=== PATIENT | female | born 1970 | race Caucasian/White ===

== ENCOUNTER 2018-02-18 08:46 | Observation (INO) ==
[2018-02-18] MEDS ORDERED: Ketorolac 30 MG/ML VIAL IVP ONE (09:12)
[2018-02-18] MEDS ORDERED: Ondansetron 4 MG/2 ML VIAL IVP ONE ×2 (09:12→18:09)
[2018-02-18] MEDS ORDERED: 0.9 % Sodium Chloride 1,000 ML IVC ONE ×2 (09:12→11:23)
--- NOTE | 2018-02-18 09:18 | Emergency Department Note ---
Disposition Clinical Impression: Ureterolithiasis, Cystitis Disposition: Admitted As Inpatient Condition: Good Forms: ED Satisfaction Letter, Work/School Release Abdominal Pain HPI - General Chief Complaint: ED Abdominal Pain Stated Complaint: Left side pain Time Seen by Provider: 02/18/18 08:50 Source: patient Mode of arrival: private vehicle Limitations: no limitations Nursing Notes Reviewed: Yes Vital Signs Reviewed: Yes - History of Present Illness Pt Subjective Complaint: flank pain Onset (ago): day(s) (Friday) Consistency: intermittent, Worsening (acutely worse this am) Pain Severity: moderate, severe Pain Scale: 8 Quality: stabbing, sharp Radiation: LLQ Improves with: nothing Worsens with: nothing Context: other (no hx of similar, also has had intermittent urinary hesitancy since Friday) Associated symptoms: Reports: nausea. Denies: vomiting, diarrhea, fever, chills , constipation, dysuria, hematemesis, hematochezia, melena, hematuria, anorexia , syncope Treatments prior to arrival: none - Related Data LMP (females 10-50): unknown Allergies Allergy/AdvReac Type Severity Reaction Status Date / Time No Known Allergies Allergy Verified 02/18/18 08:50 All systems ED: reviewed and negative except as stated. Review of Systems: As Per HPI Constitutional: Denies: fever, chills, weakness, night sweats Cardiovascular: Denies: chest pain, palpitations, syncope Respiratory: Denies: cough, dyspnea Gastrointestinal: Reports: as per HPI, abdominal pain, nausea. Denies: vomiting , diarrhea, constipation, hematemesis, melena, hematochezia Genitourinary: Reports: as per HPI, urgency. Denies: dysuria, frequency, hematuria, discharge, abnormal menses Musculoskeletal: Reports: as per HPI. Denies: joint swelling, arthralgia Neurological: Denies: headache, weakness, numbness Hematological/Lymphatic: Denies: easy bleeding, easy bruising Abdominal Pain PMH - Past Medical History Medical history: Reports: no medical history Female Surgical History: Reports: no surgical history Psychiatric history: Reports: no psych history - Social History Smoking status: Current every day smoker Alcohol use: Reports: none Drug use: Reports: none Physical Exam - General Limitations: no limitations General appearance: alert, in distress (Appears to be in pain, tearful, pacing) - Head Head exam: atraumatic, normocephalic, normal inspection - Eye Eye exam: Present: normal appearance, PERRL. Absent: scleral icterus, conjunctival injection, periorbital swelling - ENT ENT exam: mucous membranes moist - Neck Neck exam: Present: normal inspection, full ROM, trachea midline. Absent: meningismus - Chest Chest inspection: Present: normal inspection - Respiratory Respiratory exam: Present: normal lung sounds bilaterally. Absent: respiratory distress - Cardiovascular Cardiovascular exam: Present: regular rate, normal rhythm, normal heart sounds - Abdominal Exam Abdominal exam: Present: soft, Non-Tender. Absent: distention, guarding, rebound, rigidity, organomegaly, tenderness at McBurney's Point, ascites, mass, pulsatile mass - Extremities Exam Extremities exam: Present: normal inspection - Back Exam Back exam: Present: normal inspection, CVA tenderness (L). Absent: CVA tenderness (R), muscle spasm - Neurological Exam Neurological exam: Present: alert, oriented X3, CN II-XII intact, normal gait - Psychiatric Psychiatric exam: Present: normal affect, normal mood - Skin Skin exam: Present: warm, dry, intact, normal color Course Course Narrative: Patient presents for evaluation of left flank pain that began Friday. It became acutely worse this morning. It radiates into the left lower quadrant. She has no history of kidney stones, kidney infections, ovarian cysts, or other medical problems. She has had some nausea but no vomiting, no fever or chills. She has had intermittent urinary hesitancy and urgency since Friday as well. She appears uncomfortable but nontoxic. She is pacing around the room. Suspect renal colic. Meds, labs and CT have been ordered. Patient with cystitis and a distal ureteral stone. She will require admission. Rocephin ordered. Additional fluids and meds ordered. Urology paged. Patient accepted for admission. Case discussed with Dr. Mas. He has had [id number] time with patient and agrees with the assessment, plan. - Reevaluation(s) Reevaluation #1: patient states that the pain is improved but still present. Nausea is gone. She states that she had dysuria as well. Additional meds ordered. Time: 11:00 - Consultations Consultation #1: Case was discussed with Dr. Cobb, urologist. He will accept the patient for admission. He states that this patient will be the ninth add on of the day and kindly requests that we let the patient know that her procedure may be very late this evening. Patient updated. Time: 11:23 Vital Signs Temperature 97.9 F 02/18/18 08:48 Pulse Rate 95 02/18/18 08:48 Respiratory Rate 22 02/18/18 08:48 Blood Pressure 158/108 02/18/18 08:48 O2 Sat by Pulse Oximetry 100 02/18/18 08:48 Temperature 97.9 F 02/18/18 08:48 Pulse Rate 95 02/18/18 08:48 Respiratory Rate 22 02/18/18 08:48 Blood Pressure 158/108 02/18/18 08:48 O2 Sat by Pulse Oximetry 100 02/18/18 08:48 Oxygen Delivery Oxygen Delivery Room Air Abdominal Pain - MDM Narrative Medical decision making narrative: Patient presents for evaluation of acute left flank pain and urinary symptoms. She has had nausea but no vomiting, no fever or chills. She is otherwise healthy. She has normal vitals, no change in mental status, no decrease in urine output. Do not suspect sepsis. Patient's CAT scan shows an obstructive distal ureterolith with findings concerning for cystitis. Urinalysis is also concerning for cystitis. Antibiotics, fluids and pain meds have been given. Patient will require admission. - Medical Records Medical records reviewed: Yes I reviewed the patient's medical records. - Lab Data Lab results reviewed: Yes I reviewed the patient's lab results. Lab results narrative: Laboratory Last Values WBC 17.0 K/mcL (4.3-11.1) H 02/18/18 09:53 RBC 4.48 M/mcL (3.82-4.97) 02/18/18 09:53 Hgb 13.9 g/dL (11.5-15.4) 02/18/18 09:53 Hct 41.0 % (35.3-44.9) 02/18/18 09:53 MCV 91.5 fL (83.0-100.0) 02/18/18 09:53 MCH 31.0 pg (28.0-33.3) 02/18/18 09:53 MCHC 33.9 g/dL (31.6-35.5) 02/18/18 09:53 RDW 12.9 % (11.5-14.5) 02/18/18 09:53 Plt Count 218 K/mcL (140-400) 02/18/18 09:53 MPV 12.1 fL (9.4-12.4) 02/18/18 09:53 Immature Gran % 0.3 % (0-4) 02/18/18 09:53 Seg Neutrophils % 80.0 % 02/18/18 09:53 Lymphocytes % 13.8 % 02/18/18 09:53 Monocytes % 5.2 % 02/18/18 09:53 Eosinophils % 0.3 % 02/18/18 09:53 Basophils % 0.4 % 02/18/18 09:53 Neutrophils # 13.6 K/mcL (1.6-8.9) H 02/18/18 09:53 Lymphocytes # 2.4 K/mcL (0.6-4.6) 02/18/18 09:53 Monocytes # 0.9 K/mcL (0.0-1.3) 02/18/18 09:53 Eosinophils # 0.1 K/mcL (0.0-0.6) 02/18/18 09:53 Basophils # 0.1 K/mcL (0.0-0.2) 02/18/18 09:53 Sodium 135 mEq/L (136-145) L 02/18/18 09:53 Potassium 3.9 mEq/L (3.5-5.1) 02/18/18 09:53 Chloride 106 mEq/L (98-107) 02/18/18 09:53 Carbon Dioxide 23 mEq/L (23-29) 02/18/18 09:53 BUN 7 mg/dL (6-20) 02/18/18 09:53 Creatinine 0.52 mg/dL (0.60-1.20) L 02/18/18 09:53 Est GFR ( Amer) > 60 (> 60) 02/18/18 09:53 Est GFR (Non-Af Amer) > 60 (> 60) 02/18/18 09:53 BUN/Creatinine Ratio 13 (6-26) 02/18/18 09:53 Glucose 97 mg/dL (70-105) 02/18/18 09:53 Calculated Osmolality 278 (280-300) L 02/18/18 09:53 Calcium 9.5 mg/dL (8.6-10.3) 02/18/18 09:53 Urine Color Dark Yellow (Yellow) 02/18/18 09:15 Urine Clarity Turbid (Clear) A 02/18/18 09:15 Urine pH 6.5 pH Units (5.0-8.0) 02/18/18 09:15 Ur Specific [place] 1.015 (1.010-1.025) 02/18/18 09:15 Urine Protein 100 mg/dL (Neg-Trace) H 02/18/18 09:15 Urine Glucose (UA) Normal mg/dL (Normal) 02/18/18 09:15 Urine Ketones 15 mg/dL (Negative) H 02/18/18 09:15 Urine Blood Large (Negative) H 02/18/18 09:15 Urine Nitrite Positive (Negative) A 02/18/18:15 Urine Bilirubin Negative (Negative) 02/18/18 09:15 Urine Urobilinogen 2.0 mg/dL (Normal) H 02/18/18 09:15 Ur Leukocyte Esterase Large (Negative) H 02/18/18 09:15 Urine Microscopic RBC TNTC per hpf (0-3) H 02/18/18 09:15 Urine Microscopic WBC TNTC per hpf (0-3) H 02/18/18 09:15 Ur Squamous Epith Cells Many per lpf (None-Few) H 02/18/18 09:15 Urine Bacteria Many per hpf (None-Few) H 02/18/18 09:15 Hyaline Casts None Seen per lpf (None-Few) 02/18/18 09:15 Ur Culture Indicated? NO. (NO) A 02/18/18 09:15 Result diagrams: 02/18/18 09:53 Lab Results 02/18/18 02/18/18 Range/Units 09: 09:53 WBC 17.0 H (4.3-11.1) K/mcL RBC 4.48 (3.82-4.97) M/mcL Hgb 13.9 (11.5-15.4) g/dL Hct 41.0 (35.3-44.9) % MCV 91.5 (83.0-100.0) fL MCH 31.0 (28.0-33.3) pg MCHC 33.9 (31.6-35.5) g/dL RDW 12.9 (11.5-14.5) % Plt Count 218 (140-400) K/mcL MPV 12.1 (9.4-12.4) fL Immature Gran % 0.3 (0-4) % Seg Neutrophils % 80.0 % Lymphocytes % 13.8 % Monocytes % 5.2 % Eosinophils % 0.3 % Basophils % 0.4 % Neutrophils # 13.6 H (1.6-8.9) K/mcL Lymphocytes # 2.4 (0.6-4.6) K/mcL Monocytes # 0.9 (0.0-1.3) K/mcL Eosinophils # 0.1 (0.0-0.6) K/mcL Basophils # 0.1 (0.0-0.2) K/mcL Urine Color Dark Yellow (Yellow) Urine Clarity Turbid A (Clear) Urine pH 6.5 (5.0-8.0) pH Units Ur Specific [place] 1.015 (1.010-1.025) Urine Protein 100 H (Neg-Trace) mg/dL Urine Glucose (UA) Normal (Normal) mg/dL Urine Ketones 15 H (Negative) mg/dL Urine Blood Large H (Negative) Urine Nitrite Positive A (Negative) Urine Bilirubin Negative (Negative) Urine Urobilinogen 2.0 H (Normal) mg/dL Ur Leukocyte Esterase Large H (Negative) Urine Microscopic RBC TNTC H (0-3) per hpf Urine Microscopic WBC TNTC H (0-3) per hpf Ur Squamous Epith Cells Many H (None-Few) per lpf Urine Bacteria Many H (None-Few) per hpf Hyaline Casts None Seen (None-Few) per lpf Ur Culture Indicated? NO. A (NO) - Radiology Data Radiology results reviewed: Yes I reviewed the patient's radiology results. Abdomen/Pelvis CT 02/18/18 09:12 IMPRESSION: 1. Perivesical induration and apparent diffuse bladder wall thickening are suspicious for acute cystitis. 2. Mild fullness of the left ureter. 3 mm calcification along the course of the distal left ureter may represent distal ureteral calculus. 3. Normal appendix. 4. Uncomplicated cholelithiasis. 5. Mild colonic diverticulosis without acute inflammatory changes. D/ / 02/18/2018 09:51:42 Jayce Lloyd MD / leighann Interpreting Provider: Jayce Lloyd MD
[2018-02-18 09:27] LABS: Bilirubin,Urine Negative (Negative); Blood,Urine Large (Negative); Clarity,Urine Turbid (Clear); Color,Urine Dark Yellow (Yellow); Glucose,Urine (UA) Normal (Normal); Ketones,Urine 15 mg/dL (Negative); Leukocyte Esterase,Urine Large (Negative); Nitrite,Urine Positive (Negative); PH,Urine 6.5 pH Units (5.0-8.0); Protein,Urine 100 mg/dL (Neg-Trace); Specific Gravity,Urine 1.015 (1.010-1.025)
[2018-02-18 09:29] LABS: Bacteria,Urine Many per hpf (None-Few); Hyaline Casts,Urine None Seen per lpf (None-Few); RBC,Urine TNTC per hpf (0-3); Squamous Epithelial Cell,Urine Many per lpf (None-Few); WBC,Urine TNTC per hpf (0-3)
[2018-02-18 10:01] LABS: Basophils # 0.1 K/mcL (0.0-0.2); Basophils % 0.4 %; Eosinophils # 0.1 K/mcL (0.0-0.6); Eosinophils % 0.3 %; Hemoglobin 13.9 g/dL (11.5-15.4); Immature Granulocytes % 0.3 % (0-4); Lymphocytes # 2.4 K/mcL (0.6-4.6); Lymphocytes % 13.8 %; Mean Corpuscular HGB Conc 33.9 g/dL (31.6-35.5); Mean Corpuscular Volume 91.5 fL (83.0-100.0); Mean Platelet Volume 12.1 fL (9.4-12.4); Monocytes # 0.9 K/mcL (0.0-1.3); Monocytes % 5.2 %; Neutrophils # 13.6 K/mcL (1.6-8.9); Platelet Count 218 K/mcL (140-400); Red Blood Count 4.48 M/mcL (3.82-4.97); Red Cell Distribution Width 12.9 % (11.5-14.5)
[2018-02-18 10:29] LABS: BUN/Creatinine Ratio 13 (6-26); Blood Urea Nitrogen 7 mg/dL (6-20); Calcium 9.5 mg/dL (8.6-10.3); Carbon Dioxide 23 mEq/L (23-29); Chloride 106 mEq/L (98-107); Glucose 97 mg/dL (70-105); Osmolality,Calculated 278 (280-300); Potassium 3.9 mEq/L (3.5-5.1); Sodium 135 mEq/L (136-145); eGFR For Non-African Americans > 60 (> 60)
[2018-02-18] MEDS ORDERED: cefTRIAXone 1,000 MG in 0.9 % Sodium Chloride Mini Bag 100 ML IVPB ONE (10:32)
[2018-02-18] MEDS ORDERED: *HR* FentaNYL (PF) 100 MCG/2 ML VIAL IVP ONE (10:42)
--- NOTE | 2018-02-18 11:22 | Emergency Department Note ---
Disposition Clinical Impression: Ureterolithiasis, Cystitis Disposition: Admitted As Inpatient Condition: Good General Adult HPI - General Chief complaint: ED Abdominal Pain Stated complaint: Left side pain Time Seen by Provider: 02/18/18 08:50 Source: patient Mode of arrival: private vehicle Limitations: no limitations - History of Present Illness Pain Scale: 8 - Related Data Home Medications Medication Instructions Recorded Confirmed No Known Home Drugs 02/18/18 02/18/18 Allergies Allergy/AdvReac Type Severity Reaction Status Date / Time No Known Allergies Allergy Verified 02/18/18 11:25 Constitutional: Denies: fever, chills, weakness, night sweats Cardiovascular: Denies: chest pain, palpitations, syncope Respiratory: Denies: cough, dyspnea Gastrointestinal: Reports: as per HPI, abdominal pain, nausea. Denies: vomiting , diarrhea, constipation, hematemesis, melena, hematochezia Genitourinary: Reports: as per HPI, urgency. Denies: dysuria, frequency, hematuria, discharge, abnormal menses Musculoskeletal: Reports: as per HPI. Denies: joint swelling, arthralgia Neurological: Denies: headache, weakness, numbness Hematological/Lymphatic: Denies: easy bleeding, easy bruising Past Medical History - Past Medical History Medical history: Reports: no medical history Psychiatric history: Reports: no psych history - Social History Smoking Status: Current every day smoker Smokeless Tobacco Status: No Alcohol use: Reports: none Drug use: Reports: none Physical Exam - General Limitations: no limitations General appearance: alert, in distress (Appears to be in pain, tearful, pacing) Course Vital Signs Temperature 97.9 F 02/18/18 08:48 Pulse Rate 95 02/18/18 08:48 Respiratory Rate 22 02/18/18 08:48 Blood Pressure 158/108 02/18/18 08:48 O2 Sat by Pulse Oximetry 100 02/18/18 08:48 Temperature 97.6 F 02/18/18 13:26 Pulse Rate 60 02/18/18 13:26 Respiratory Rate 16 02/18/18 13:26 Blood Pressure 146/77 02/18/18 13:26 O2 Sat by Pulse Oximetry 99 02/18/18 13:51 Oxygen Delivery Oxygen Delivery Room Air Medical Decision Making - Lab Data Result diagrams: 02/18/18 09:53 02/18/18 09:53 Lab Results 10/02/2602/18/18 02/18/18 Range/Units 09:15 09:53 09:53 WBC 17.0 H (4.3-11.1) K/mcL RBC 4.48 (3.82-4.97) M/mcL Hgb 13.9 (11.5-15.4) g/dL Hct 41.0 (35.3-44.9) % MCV 91.5 (83.0-100.0) fL MCH 31.0 (28.0-33.3) pg MCHC 33.9 (31.6-35.5) g/dL RDW 12.9 (11.5-14.5) % Plt Count 218 (140-400) K/mcL MPV 12.1 (9.4-12.4) fL Immature Gran % 0.3 (0-4) % Seg Neutrophils % 80.0 % Lymphocytes % 13.8 % Monocytes % 5.2 % Eosinophils % 0.3 % Basophils % 0.4 % Neutrophils # 13.6 H (1.6-8.9) K/mcL Lymphocytes # 2.4 (0.6-4.6) K/mcL Monocytes # 0.9 (0.0-1.3) K/mcL Eosinophils # 0.1 (0.0-0.6) K/mcL Basophils # 0.1 (0.0-0.2) K/mcL Sodium 135 L (136-145) mEq/L Potassium 3.9 (3.5-5.1) mEq/L Chloride 106 (98-107) mEq/L Carbon Dioxide 23 (23-29) mEq/L BUN 7 (6-20) mg/dL Creatinine 0.52 L (0.60-1.20) mg/dL Est GFR ( Amer) > 60 (> 60) Est GFR (Non-Af Amer) > 60 (> 60) BUN/Creatinine Ratio 13 (6-26) Glucose 97 (70-105) mg/dL Calculated Osmolality 278 L (280-300) Calcium 9.5 (8.6-10.3) mg/dL Urine Color Dark Yellow (Yellow) Urine Clarity Turbid A (Clear) Urine pH 6.5 (5.0-8.0) pH Units Ur Specific [place] 1.015 (1.010-1.025) Urine Protein 100 H (Neg-Trace) mg/dL Urine Glucose (UA) Normal (Normal) mg/dL Urine Ketones 15 H (Negative) mg/dL Urine Blood Large H (Negative) Urine Nitrite Positive A (Negative) Urine Bilirubin Negative (Negative) Urine Urobilinogen 2.0 H (Normal) mg/dL Ur Leukocyte Esterase Large H (Negative) Urine Microscopic RBC TNTC H (0-3) per hpf Urine Microscopic WBC TNTC H (0-3) per hpf Ur Squamous Epith Cells Many H (None-Few) per lpf Urine Bacteria Many H (None-Few) per hpf Hyaline Casts None Seen (None-Few) per lpf Ur Culture Indicated? NO. A (NO) Attestation Statement - Attestation Attestation: For this encounter, I have reviewed the SENIOR MANUFACTURING ENGINEER or PA documentation, treatment plan, and medical decision making; and I have had face to face time with this patient. [id number] time provided Patient uncomfortable appearing on exam. Labs and transcribed CT report reviewed by me
[2018-02-18] MEDS ORDERED: OXYCODONE Oral CONC 10 MG/0.5 ML ORAL.SYG SL PRN ×4 (13:04→20:06)
[2018-02-18] MEDS ORDERED: Ondansetron 4 MG/2 ML VIAL IVP PRN ×2 (13:04→20:06)
[2018-02-18] MEDS ORDERED: *HR* Belladonna Alkaloids/Opium 30 MG RECTAL SUPPOSITORY RC PRN ×2 (13:04→20:06)
[2018-02-18] MEDS ORDERED: *HR* OxyCODONE Immed Rel 5 MG TABLET PO PRN (13:04)
[2018-02-18] MEDS ORDERED: Acetaminophen 325 MG TABLET PO PRN ×2 (13:04→20:06)
[2018-02-18] MEDS ORDERED: Naloxone 0.4 MG/ML INJ IVP PRN ×2 (13:04→20:06)
[2018-02-18] MEDS ORDERED: *HR* HYDROcodone/Acet 5/325 mg TABLET PO PRN ×2 (13:04→20:06)
[2018-02-18] MEDS ORDERED: 0.9 % Sodium Chloride 1,000 ML IVC SCH (13:15)
--- NOTE | 2018-02-18 13:17 | Urology History & Physical ---
<Janette Early N - Last Filed: 02/18/18 13:15> Date of Encounter: 02/18/18 Time of Encounter: 11:30 Assessment and Plan (1) Ureterolithiasis Current Visit: Yes Status: Acute Patient is a 47 year old female who presents with a 3mm left distal ureteral stone. Discussed risks and benefits of ureteroscopic stone extraction. Patient verbalized understanding, consent has been signed, and she is prepared to undergo a left ureteroscopic stone extraction with or without holmium laser lithotripsy, basket retrieval, and ureteral stent placement with Dr. Cobb. Patient will remain NPO. (2) Cystitis Current Visit: Yes Status: Acute Patient is a 47 year old female who presents with acute cystitis. Patient has been placed on IV Rocephin and is prepared to undergo cystoscopy and ureteroscopic stone extraction later today. History of Present Illness Chief complaint: left flank pain HPI: Ms. Del Rio is a 47 year old female who presents with a history of a 3mm left ureteral stone. Patient reports left flank pain began 5 days ago, but pain acutely worsened last night. Patient states pain is now accompanied with intractable nausea and vomiting. Patient states she feels as though she has chills but denies fever or diaphoresis. Patient denies gross hematuria or dysuria. Patient denies known past history of renal stones. Patient denies known family history of renal stones. Past Med Surg Social Fam HX - Past Medical History Medical history: no medical history Psychiatric history: no psych history - Social History Smoking Status: Current every day smoker Smokeless Tobacco Status: No Alcohol use: none Drug use: none Medications and Allergies No Known Home Drugs 02/18/18 [History] 3 Allergy/AdvReac Type Severity Reaction Status Date / Time No Known Allergies Allergy Verified 02/18/18 11:25 Review of Systems - Constitutional chills, fatigue, no fever(s) - EENT Nose, mouth and throat: no dizziness, no headache(s) - Cardiovascular no chest pain, no diaphoresis, no dyspnea - Respiratory no cough, no dyspnea - Gastrointestinal abdominal pain, nausea, vomiting - Genitourinary Genitourinary: difficulty urinating, flank pain, urinary hesitancy, no dysuria, no hematuria, no urinary frequency, no urinary incontinence, no urinary urgency - Musculoskeletal back pain, no numbness - Integumentary no erythema, no rash - Neurological no confusion, no syncope - Hematologic/Lymphatic no easy bleeding, no easy bruising - Allergic/Immunologic no throat swelling, no wheezing Exam Initial Vital Signs Temp Pulse Resp BP Pulse Ox 97.9 F 95 22 158/108 100 02/18/18 08:48 02/18/18 08:48 02/18/18 08:48 02/18/18 08:48 02/18/18 08:48 - General physical appearance Present: well developed, no distress, moderate pain - Eyes Present: PERRL, normal ocular movement - ENT Present: normal nares, no hearing loss, no congestion - Neck Present: no masses, trachea midline - Respiratory Present: normal respiratory effort - Cardiovascular Cardiovascular exam IM: RRR - Abdomen Abdomen: Present: soft, non tender. Absent: distended - Integumentary Present: no rash, no abnormal pigmentation - Neurologic Present: normal coordination - Musculoskeletal Present: other (normal posture) Urology Results - Labs 02/18/18 09:53 02/18/18 09:53 Abnormal lab results WBC 17.0 K/mcL (4.3-11.1) H 02/18/18 09:53 Neutrophils # 13.6 K/mcL (1.6-8.9) H 02/18/18 09:53 Sodium 135 mEq/L (136-145) L 02/18/18 09:53 Creatinine 0.52 mg/dL (0.60-1.20) L 02/18/18 09:53 Calculated Osmolality 278 (280-300) L 02/18/18 09:53 Urine Clarity Turbid (Clear) A 02/18/18 09:15 Urine Protein 100 mg/dL (Neg-Trace) H 02/18/18 09:15 Urine Ketones 15 mg/dL (Negative) H 02/18/18 09:15 Urine Blood Large (Negative) H 02/18/18 09:15 Urine Nitrite Positive (Negative) A 02/18/18 09:15 Urine Urobilinogen 2.0 mg/dL (Normal) H 02/18/18 09:15 Ur Leukocyte Esterase Large (Negative) H 02/18/18 09:15 Urine Microscopic RBC TNTC per hpf (0-3) H 02/18/18 09:15 Urine Microscopic WBC TNTC per hpf (0-3) H 02/18/18 09:15 Ur Squamous Epith Cells Many per lpf (None-Few) H 02/18/18 09:15 Urine Bacteria Many per hpf (None-Few) H 02/18/18 09:15 Ur Culture Indicated? NO. (NO) A 02/18/18 09:15 All other labs normal. - Imaging CT scan - abdomen: report reviewed, image reviewed CT scan - pelvis: report reviewed, image reviewed <Connor Cobb - Last Filed: 02/18/18 17:31> Date of Encounter: 02/18/18 Assessment and Plan (1) Ureterolithiasis Current Visit: Yes Status: Acute agree with PA findings. I reviewed CT scan. I agree to proceed with planned stone extraction. although a UTI is possible I should be able to extract the stone with minimal manipulation. will require stent. procedure discussed with pt. History of Present Illness HPI: Ms. Del Rio is a 47 year old female Exam Initial Vital Signs Temp Pulse Resp BP Pulse Ox 97.9 F 95 22 158/108 100 02/18/18 08:48 02/18/18 08:48 02/18/18 08:48 02/18/18 08:48 02/18/18 08:48 Urology Results - Labs 02/18/18 09:53 02/18/18 09:53 Abnormal lab results WBC 17.0 K/mcL (4.3-11.1) H 02/18/18 09:53 Neutrophils # 13.6 K/mcL (1.6-8.9) H 02/18/18 09:53 Sodium 135 mEq/L (136-145) L 02/18/18 09:53 Creatinine 0.52 mg/dL (0.60-1.20) L 02/18/18 09:53 Calculated Osmolality 278 (280-300) L 02/18/18 09:53 Urine Clarity Turbid (Clear) A 02/18/18 09:15 Urine Protein 100 mg/dL (Neg-Trace) H 02/18/18 09:15 Urine Ketones 15 mg/dL (Negative) H 02/18/18 09:15 Urine Blood Large (Negative) H 02/18/18 09:15 Urine Nitrite Positive (Negative) A 02/18/18 09:15 Urine Urobilinogen 2.0 mg/dL (Normal) H 02/18/18 09:15 Ur Leukocyte Esterase Large (Negative) H 02/18/18 09:15 Urine Microscopic RBC TNTC per hpf (0-3) H 02/18/18 09:15 Urine Microscopic WBC TNTC per hpf (0-3) H 02/18/18 09:15 Ur Squamous Epith Cells Many per lpf (None-Few) H 02/18/18 09:15 Urine Bacteria Many per hpf (None-Few) H 02/18/18 09:15 Ur Culture Indicated? NO. (NO) A 02/18/18 09:15 All other labs normal.
--- NOTE | 2018-02-18 16:50 | Anesthesia Evaluation PreOp ---
Date of Encounter: 02/18/18 Time of Encounter: 17:42 - Past History Planned Operation: LEFT USE Cardiac History: Denies any Significant Hx Pulmonary History: Smoker [employer] History: Denies Any Significant HX Other Medical History: Denies Any Significant HX Alcohol Use: none Drug use: none Medications and Allergies No Known Home Drugs 02/18/18 [History] 3 Allergy/AdvReac Type Severity Reaction Status Date / Time No Known Allergies Allergy Verified 02/18/18 11:25 - Meds/Allergy Pre-op Review Medications Reviewed: Yes Allergies Reviewed: Yes Beta Blockers on Current Med List: No Anesthesia Results - Labs 02/18/18 09:53 02/18/18 09:53 Laboratory Last Values WBC 17.0 K/mcL (4.3-11.1) H 02/18/18 09:53 RBC 4.48 M/mcL (3.82-4.97) 02/18/18 09:53 Hgb 13.9 g/dL (11.5-15.4) 02/18/18 09:53 Hct 41.0 % (35.3-44.9) 02/18/18 09:53 MCV 91.5 fL (83.0-100.0) 02/18/18 09:53 MCH 31.0 pg (28.0-33.3) 02/18/18 09:53 MCHC 33.9 g/dL (31.6-35.5) 02/18/18 09:53 RDW 12.9 % (11.5-14.5) 02/18/18 09:53 Plt Count 218 K/mcL (140-400) 02/18/18 09:53 MPV 12.1 fL (9.4-12.4) 02/18/18 09:53 Immature Gran % 0.3 % (0-4) 02/18/18 09:53 Seg Neutrophils % 80.0 % 02/18/18 09:53 Lymphocytes % 13.8 % 02/18/18 09:53 Monocytes % 5.2 % 02/18/18 09:53 Eosinophils % 0.3 % 02/18/18 09:53 Basophils % 0.4 % 02/18/18 09:53 Neutrophils # 13.6 K/mcL (1.6-8.9) H 02/18/18 09:53 Lymphocytes # 2.4 K/mcL (0.6-4.6) 02/18/18 09:53 Monocytes # 0.9 K/mcL (0.0-1.3) 02/18/18 09:53 Eosinophils # 0.1 K/mcL (0.0-0.6) 02/18/18 09:53 Basophils # 0.1 K/mcL (0.0-0.2) 02/18/18 09:53 Sodium 135 mEq/L (136-145) L 02/18/18 09:53 Potassium 3.9 mEq/L (3.5-5.1) 02/18/18 09:53 Chloride 106 mEq/L (98-107) 02/18/18 09:53 Carbon Dioxide 23 mEq/L (23-29) 02/18/18 09:53 BUN 7 mg/dL (6-20) 02/18/18 09:53 Creatinine 0.52 mg/dL (0.60-1.20) L 02/18/18 09:53 Est GFR ( Amer) > 60 (> 60) 02/18/18 09:53 Est GFR (Non-Af Amer) > 60 (> 60) 02/18/18 09:53 BUN/Creatinine Ratio 13 (6-26) 02/18/18 09:53 Glucose 97 mg/dL (70-105) 02/18/18 09:53 Calculated Osmolality 278 (280-300) L 02/18/18 09:53 Calcium 9.5 mg/dL (8.6-10.3) 02/18/18 09:53 Urine Color Dark Yellow (Yellow) 02/18/18 09:15 Urine Clarity Turbid (Clear) A 02/18/18 09:15 Urine pH 6.5 pH Units (5.0-8.0) 02/18/18 09:15 Ur Specific [place] 1.015 (1.010-1.025) 02/18/18 09:15 Urine Protein 100 mg/dL (Neg-Trace) H 02/18/18 09:15 Urine Glucose (UA) Normal mg/dL (Normal) 02/18/18 09:15 Urine Ketones 15 mg/dL (Negative) H 02/18/18 09:15 Urine Blood Large (Negative) H 02/18/18 09:15 Urine Nitrite Positive (Negative) A 02/18/18 09:15 Urine Bilirubin Negative (Negative) 02/18/18 09:15 Urine Urobilinogen 2.0 mg/dL (Normal) H 02/18/18 09:15 Ur Leukocyte Esterase Large (Negative) H 02/18/18 09:15 Urine Microscopic RBC TNTC per hpf (0-3) H 02/18/18 09:15 Urine Microscopic WBC TNTC per hpf (0-3) H 02/18/18 09:15 Ur Squamous Epith Cells Many per lpf (None-Few) H 02/18/18 09:15 Urine Bacteria Many per hpf (None-Few) H 02/18/18 09:15 Hyaline Casts None Seen per lpf (None-Few) 02/18/18 09:15 Ur Culture Indicated? NO. (NO) A 02/18/18 09:15 Urine Test Negative (Negative) 02/18/18 15:46 Anesthesia Exam Vital Signs/O2 Sat, Most Current Temp Pulse Resp BP Pulse Ox 98.0 F 51 16 137/69 99 02/18/18 16:48 02/18/18 16:48 02/18/18 16:48 02/18/18 16:48 02/18/18 16:48 Weight: 53 KG - BMI 23 NPO (# of Hours): 8 - HEENT Mallampati: I Teeth: Normal Oral Opening: Greater than 3 - Cardiac Rhythm: Regular - Pulmonary Breath Sounds: bilateral Clear Respiratory Effort: Symmetrical - Additional Findings MAR Administrations Sodium Chloride (0.9 % Sodium Chloride) 1,000 mls @ 125 mls/hr IVC .Q8H ERA Stop: 08/20/18 13:16 Last Admin: 02/18/18 14:06 Dose: 125 mls/hr Oxycodone HCl (Oxycodone Oral Conc) 10 mg SL Q4H PRN; Protocol PRN Reason: Severe Pain Stop: 08/20/18 13:05 Last Admin: 02/18/18 14:05 Dose: 10 mg Fentanyl Citrate (Fentanyl (Pf)) 50 mcg IVP ONCE ONE Stop: 02/18/18 10:43 Last Admin: 02/18/18 11:24 Dose: 50 mcg Sodium Chloride (0.9 % Sodium Chloride) 1,000 mls @ 999 mls/hr IVC .Q1H1M ONE Stop: 02/18/18 10:12 Last Infusion: 02/18/18 10:20 Dose: 0 mls/hr Admin: 02/18/18 09:49 Dose: 999 mls/hr Ceftriaxone Sodium 1,000 mg/ (Sodium Chloride) 100 mls @ 200 mls/hr IVPB ONCE ONE Stop: 02/18/18 11:01 Last Infusion: 02/18/18 11:57 Dose: 0 mls/hr Admin: 02/18/18 11:24 Dose: 200 mls/hr Sodium Chloride (0.9 % Sodium Chloride) 1,000 mls @ 3,750 mls/hr IVC .Q16M ONE Stop: 02/18/18 11:38 Last Infusion: 02/18/18 11:57 Dose: 0 mls/hr Admin: 02/18/18 11:28 Dose: 3,750 mls/hr Ketorolac Tromethamine (Toradol) 30 mg IVP ONCE ONE Stop: 02/18/18 09:13 Last Admin: 02/18/18 09:49 Dose: 30 mg Ondansetron HCl (Zofran) 4 mg IVP ONCE ONE Stop: 02/18/18 09:13 Last Admin: 02/18/18 09:49 Dose: 4 mg Phenazopyridine HCl (Pyridium) 200 mg PO NOW ONE Stop: 02/18/18 10:43 Last Admin: 02/18/18 11:24 Dose: 200 mg Anesthesia Assess/Plan ASA Score: 2 Modified [place] Scale for Level of Consciousness: Cooperative, oriented, and tranquil Anesthetic Plan: General Monitoring Plan: Standard Monitors Recovery Plan: PACU Anes Supervising Prov Stmt: Patient informed and consented. Risks, benefits, and alternatives discussed. Patient wishes to proceed.
[2018-02-18] MEDS ORDERED: Lidocaine -MPF 2% 2 ML VIAL ONE (16:59)
[2018-02-18] MEDS ORDERED: *HR* Propofol 200 MG/20 ML VIAL IVP ONE (16:59)
[2018-02-18] MEDS ORDERED: *HR* FentaNYL (PF) 100 MCG/2 ML VIAL ONE (16:59)
[2018-02-18] MEDS ORDERED: Isovue-300 50 ML VIAL IVP ONE (17:21)
[2018-02-18] MEDS ORDERED: Ondansetron 4 MG/2 ML VIAL ONE (17:34)
[2018-02-18] MEDS ORDERED: Dexamethasone 4 MG/ML VIAL ONE (17:34)
[2018-02-18] MEDS ORDERED: *HR* Promethazine 25 MG/ML VIAL IVP PRN (18:09)
[2018-02-18] MEDS ORDERED: *HR* Morphine 2 MG/ML SYRINGE IVP PRN (18:09)
[2018-02-18] MEDS ORDERED: Dexamethasone 4 MG/ML VIAL IVP ONE (18:09)
[2018-02-18] MEDS ORDERED: Acetaminophen IV 1,000 MG/100 ML INFUS..BTL IVPB PRN (18:09)
--- NOTE | 2018-02-18 18:58 | Operative Note ---
Date of procedure: 02/18/18 Pre-op diagnosis: left distal ureteral stone Post-op diagnosis: same Procedure: left ureteroscopy Left retrograde pyelogram and stent Anesthesia: GETA Surgeon: Connor Cobb Was there an middle school assistant principal present: No Estimated blood loss (cc): 0 Specimen: None Condition: stable Disposition: PACU Procedure in Detail: PROCEDURE IN DETAIL: Patient was taken back to the operating room, positioned supine on the operating table. Anesthesia was applied without complication. They were moved into dorsal lithotomy. Careful attention was maintained to cushion all pressure points for patient's safety. They were prepped and draped in sterile fashion. Time-out was performed with the proper patient and procedure. A 21-[place] rigid cystoscope was inserted into the bladder without difficulty. Systematic examination of bladder revealed severe cystitis. The ureteral orifice was cannulated using a 5-Yoruba ureteral Catheter and a retrograde pyelogram was performed using Isovue. At first I felt she had a small filling defect in the distal ureter. I passed a zip wire and then subsequently a short semirigid ureteroscope. There was significant mucosal edema and a narrowing in the ureter just proximal to the ureteral vesicle junction. There was significant debris in this area but no obvious well-formed stone. I did advance the scope up into the proximal ureter but did not proceed further. A 4.8 x 24 ureteral stent was placed over the zip wire under fluoroscopy without complication. There was no string left to the stent .
--- NOTE | 2018-02-18 19:10 | Anesthesia Evaluation Post Op ---
Date of Encounter: 02/18/18 Time of Encounter: 19:10 - Vital Signs Vital Signs: Vital Signs/O2 Sat, Most Current Temp Pulse Resp BP Pulse Ox 97.3 F L 81 16 132/87 100 02/18/18 18:20 02/18/18 19:00 02/18/18 19:00 02/18/18 19:00 02/18/18 19:00 - Lungs Lungs: Clear Ascult./Percussion - Airway Airway: Non-obstructed - Cardiovascular Regular Rate - Mental Status Mental Status: Alert & Oriented, Answers Appropriately - Pain Pain Scale: 0 Pain Scale used: Numeric (1 - 10) - Nausea Vomiting Nausea Vomiting: Not Present - Hydration Hydration: Ice chips, Able to void - Discharge PostOp Status: Transfer Patient to floor
[2018-02-18] MEDS: *HR* OxyCODONE Immed Rel 5 MG TABLET PO PRN (21:39)
[2018-02-18] MEDS: 0.9 % Sodium Chloride 1,000 ML IVC SCH (21:43)
[2018-02-18] MEDS ORDERED: hydrALAZINE 25 MG TABLET PO PRN (23:24)
[2018-02-19 01:39] LABS: Basophils % 0.2 %; Hematocrit 41.5 % (35.3-44.9); Hemoglobin 13.5 g/dL (11.5-15.4); Immature Granulocytes % 0.3 % (0-4); Lymphocytes # 0.7 K/mcL (0.6-4.6); Lymphocytes % 4.6 %; Mean Corpuscular HGB Conc 32.5 g/dL (31.6-35.5); Mean Corpuscular Hemoglobin 30.4 pg (28.0-33.3); Mean Corpuscular Volume 93.5 fL (83.0-100.0); Mean Platelet Volume 12.2 fL (9.4-12.4); Monocytes # 0.1 K/mcL (0.0-1.3); Monocytes % 0.4 %; Neutrophils # 14.3 K/mcL (1.6-8.9); Platelet Count 211 K/mcL (140-400); Red Blood Count 4.44 M/mcL (3.82-4.97); Red Cell Distribution Width 12.9 % (11.5-14.5); Segmented Neutrophils % 94.5 %
[2018-02-19 01:57] LABS: BUN/Creatinine Ratio 14 (6-26); Blood Urea Nitrogen 7 mg/dL (6-20); Calcium 9.3 mg/dL (8.6-10.3); Carbon Dioxide 21 mEq/L (23-29); Chloride 105 mEq/L (98-107); Glucose 126 mg/dL (70-105); Osmolality,Calculated 280 (280-300); Sodium 135 mEq/L (136-145); eGFR For Non-African Americans > 60 (> 60)
[2018-02-19] MEDS: *HR* OxyCODONE Immed Rel 5 MG TABLET PO PRN ×2 (03:36→10:48)
[2018-02-19] MEDS: 0.9 % Sodium Chloride 1,000 ML IVC SCH ×2 (04:49→10:52)
--- NOTE | 2018-02-19 10:11 | Urology Progress Note ---
<Janette Early N - Last Filed: 02/19/18 10:08> Date of Encounter: 02/19/18 Time of Encounter: 09:30 - Assessment and Plan (1) Ureterolithiasis Status: Acute Assessment and plan: Patient is a 47-year-old female who is one day status post left ureteroscopy, left retrograde pyelogram and stent. Patient is aware she will need a second procedure for definitive stone extraction. Patient states she is already feeling much better, and flank pain is improving. I discussed postoperative expectations, restrictions, and activity with ureteral stent. (2) Cystitis Status: Acute Assessment and plan: Patient is a 47-year-old female who presents with a left distal ureteral stone and cystitis. Patient is feeling well postoperatively, and vital signs are stable and afebrile. White blood cell count is trending down. We will discuss outpatient oral antibiotic choice with Dr. Cobb prior to discharge. Progress Note Subjective: feels better Narrative: POD #1. Patient seen and examined sitting upright in bed in no apparent distress. Patient is feeling well with no new concerns. Patient states she is voiding without difficulty and tolerating normal diet. Pain is well- controlled. Patient denies fever, chills, flank pain. Objective Initial Vital Signs Temp Pulse Resp BP Pulse Ox 97.9 F 95 22 158/108 100 02/18/18 08:48 02/18/18 08:48 02/18/18 08:48 02/18/18 08:48 02/18/18 08:48 - General physical appearance Present: well developed, no distress, no pain - Respiratory Present: normal expansion, normal respiratory effort - Abdomen Present: soft, non tender - Integumentary Present: no rash, no abnormal pigmentation - Musculoskeletal Present: normal posture - Psychiatric Present: oriented to time, oriented to person, oriented to place, speech is normal, memory intact - Labs 02/19/18 01:19 02/19/18 01:19 Diabetes panel 02/19/18 Range/Units 01:19 Sodium 135 L (136-145) mEq/L Potassium 4.0 (3.5-5.1) mEq/L Chloride 105 (98-107) mEq/L Carbon Dioxide 21 L (23-29) mEq/L BUN 7 (6-20) mg/dL Creatinine 0.50 L (0.60-1.20) mg/dL Glucose 126 H (70-105) mg/dL Calcium 9.3 (8.6-10.3) mg/dL Calcium panel 02/19/18 Range/Units 01:19 Calcium 9.3 (8.6-10.3) mg/dL Pituitary panel 02/19/18 Range/Units 01:19 Sodium 135 L (136-145) mEq/L Potassium 4.0 (3.5-5.1) mEq/L Chloride 105 (98-107) mEq/L Carbon Dioxide 21 L (23-29) mEq/L BUN 7 (6-20) mg/dL Creatinine 0.50 L (0.60-1.20) mg/dL Glucose 126 H (70-105) mg/dL Calcium 9.3 (8.6-10.3) mg/dL Adrenal panel 02/19/18 Range/Units 01:19 Sodium 135 L (136-145) mEq/L Potassium 4.0 (3.5-5.1) mEq/L Chloride 105 (98-107) mEq/L Carbon Dioxide 21 L (23-29) mEq/L BUN 7 (6-20) mg/dL Creatinine 0.50 L (0.60-1.20) mg/dL Glucose 126 H (70-105) mg/dL Calcium 9.3 (8.6-10.3) mg/dL Consult Discharge Plan - Plan Additional Instructions: expect stent discomfort including urgency, frequency, burning, blood in the urine. THIS IS NORMAL and will decrease when stent is removed my office will call to schedule off removal of the stent call if fever >101 OK to take OTC AZO for dysuria. Referrals: MARINELLI [Other] NONE,PCP [Primary Care Provider] - (my office (Dr cobb) will call to schedule office removal of stent. ) Prescriptions: HYDROcodone/Acet 5/325 mg [Many 5-325 mg] 1 tab PO Q4H PRN 7 Days #20 tablet PRN Reason: mild/moderate pain Oxybutynin [Ditropan] 5 mg PO BID PRN #60 tablet PRN Reason: bladder spasms and urgency Sulfamethoxazole/Trimeth DS [Bactrim DS] 1 each PO BID #20 tablet <Connor Cobb - Last Filed: 02/21/18 07:37> Date of Encounter: 02/21/18 - Assessment and Plan (1) Ureterolithiasis Status: Resolved Assessment and plan: seen in conjunction with PA. Agree with notes and plan Objective Initial Vital Signs Temp Pulse Resp BP Pulse Ox 97.9 F 95 22 158/108 100 02/18/18 08:48 02/18/18 08:48 02/18/18 08:48 02/18/18 08:48 02/18/18 08:48 - Labs 02/19/18 01:19 02/19/18 01:19
[2018-02-19 15:36] VITALS: BP 161/87
--- NOTE | 2018-02-19 17:53 | Discharge Summary ---
Date of Encounter: 02/19/18 Time of Encounter: 17:54 - Discharge Diagnosis (1) Ureterolithiasis Priority: Primary Status: Resolved Comments: discharge today - Hospital Course Hospital course: Ms. Del Rio is a 47 year old female pt s/p ureteroscopy. doing better expect for dysuria. no fever. WBC down to 15 from 17. feels better. We discussed continuing hospitalization and rechecking white blood cell count in the morning. I do feel this patient is safe for discharge. I will follow the culture as an outpatient and verify that she is being discharged on the correct antibiotic. She does not appear septic now. Her dysuria is expected with her significant UTI and stent in place. She will follow for cystoscopy stent removal. She will return to the emergency room if symptoms worsen and she begins to have fever or flulike symptoms. - Time Spent with Patient Total time spent providing and/or coordinating discharge services: Less than 30 minutes Labs on day of discharge: Labs from last 24 hours 02/19/18 02/19/18 01:19 01:19 WBC 15.2 H RBC 4.44 Hgb 13.5 Hct 41.5 MCV 93.5 MCH 30.4 MCHC 32.5 RDW 12.9 Plt Count 211 MPV 12.2 Immature Gran % 0.3 Seg Neutrophils % 94.5 Lymphocytes % 4.6 Monocytes % 0.4 Eosinophils % 0.0 Basophils % 0.2 Neutrophils # 14.3 H Lymphocytes # 0.7 Monocytes # 0.1 Eosinophils # 0.0 Basophils # 0.0 Sodium 135 L Potassium 4.0 Chloride 105 Carbon Dioxide 21 L BUN 7 Creatinine 0.50 L Est GFR ( Amer) > 60 Est GFR (Non-Af Amer) > 60 BUN/Creatinine Ratio 14 Glucose 126 H Calculated Osmolality 280 Calcium 9.3 - Discharge Medications Prescriptions: HYDROcodone/Acet 5/325 mg [[place] 5-325 mg] 1 tab PO Q4H PRN 7 Days #20 tablet PRN Reason: mild/moderate pain Oxybutynin [Ditropan] 5 mg PO BID PRN #60 tablet PRN Reason: bladder spasms and urgency Sulfamethoxazole/Trimeth DS [Bactrim DS] 1 each PO BID #20 tablet Home Medications: HYDROcodone/Acet 5/325 mg [[place] 5-325 mg] 1 tab PO Q4H PRN 7 Days #20 tablet [Rx] Oxybutynin [Ditropan] 5 mg PO BID PRN #60 tablet 02/19/18 [Rx] Sulfamethoxazole/Trimeth DS [Bactrim DS] 1 each PO BID #20 tablet 02/19/18 [Rx] Allergies/Adverse Reactions: 3 Allergy/AdvReac Type Severity Reaction Status Date / Time No Known Allergies Allergy Verified 02/18/18 11:25 Date of admission: 02/18/18 12:22 Primary care physician: PCP NONE Discharging clinician: Connor Cobb Anticipated date of discharge: 02/19/18 Exam Initial Vital Signs Temp Pulse Resp BP Pulse Ox 97.9 F 95 22 158/108 100 02/18/18 08:48 02/18/18 08:48 02/18/18 08:48 02/18/18 08:48 02/18/18 08:48 - General physical appearance Present: no distress - Patient Status Disposition: Home, Self-Care Condition: Good Overall status at discharge: patient is progressing back to baseline - Discharge Instructions Follow Up With: MARINELLI [Other] NONE,PCP [Primary Care Provider] - (my office (Dr cobb) will call to schedule office removal of stent. ) Additional Instructions: expect stent discomfort including urgency, frequency, burning, blood in the urine. THIS IS NORMAL and will decrease when stent is removed my office will call to schedule off removal of the stent call if fever >101 OK to take OTC AZO for dysuria. - Diet and Activity Activity: other Diet: advance to your usual diet
== END 2018-02-19 19:33 | disposition home or self-care (01) ==
LOC: 3BNU 08:46 → EMEROOARM 08:46 → 3BNU 12:57
PROVIDERS: ADMIT Urology; ATTEND Urology